=== PATIENT | female | born 1995 ===

== ENCOUNTER 2019-10-10 12:58 | Emergency (ER) | payer MEDICAID, OTHER ==
[~2019-10-10] VITALS: Ht 167.6 cm; Wt 61.4 kg
[2019-10-10] MEDS ORDERED: DOCO200C5 PO (14:04)
[2019-10-10 14:46] VITALS: BP 141/90
== END 2019-10-10 14:54 | disposition home or self-care (01) ==
LOC: EMS 13:04
DX: O16.1 Unspecified maternal hypertension, first trimester (principal); O26.891 Other specified pregnancy related conditions, first trimester; Z3A.01 Less than 8 weeks gestation of pregnancy